=== PATIENT | male | born 1970 | race Caucasian/White ===

== ENCOUNTER 2021-07-12 20:08 | Emergency (ER) | payer BC ==
[2021-07-12 21:04] LABS: #Basophils 0.1 10x3/uL (0.0-0.2); #Eosinphils 0.2 10x3/uL (0.0-0.5); #Monocytes 0.9 10x3/uL (0.0-1.1); #Neutrophils 4.2 10x3/uL (1.5-8.4); %Basophils 0.6 % (0.0-2.0); %Eosinophils 2.8 % (0.0-6.0); %Lymphocytes 33.7 % (18.0-47.0); %Monocytes 11.2 % (0.0-10.0); %Neutrophils 51.5 % (40.0-75.0); Hemoglobin 16.8 g/dL (13.5-17.5); Mean Corpuscular HGB CONC 34.3 g/dL (32.0-36.0); Mean Corpuscular Hemoglobin 30.7 pg (27.0-33.0); Mean Corpuscular Volume 89.6 fl (81.2-95.1); Mean Platelet Volume 9.7 fl (7.4-10.4); Platelet Count 221 10x3/uL (150-450); RBC Distribution Width 12.6 % (11.5-14.5); Red Blood Cell (RBC) Count 5.47 10x6/uL (4.32-5.72); White Blood Cell (WBC) Count 8.2 10x3/uL (3.5-10.5)
[2021-07-12 21:17] LABS: ALT (SGPT) 59 U/L (8-55); AST (SGOT) 31 U/L (5-34); Albumin 4.3 g/dL (3.5-5.0); Alkaline Phosphatase 45 U/L (40-110); Anion Gap 13 mmol/L (10-20); BUN (Urea Nitrogen) 16 mg/dL (8.9-20.6); Bilirubin, Total 0.4 mg/dL (0.2-1.2); Calc. Creatinine Clearance 0 mL/min (70-130); Calcium 9.6 mg/dL (7.8-10.44); Carbon Dioxide 25 mmol/L (22-29); Chloride 106 mmol/L (98-107); Glucose 122 mg/dL (70-105); Potassium 4.6 mmol/L (3.5-5.1); Protein, Total 7.3 g/dL (6.0-8.3); Sodium 139 mmol/L (136-145)
== END 2021-07-12 22:04 | disposition home or self-care (01) ==
LOC: CSHERS 20:08
DX: I82.401 Acute embolism and thrombosis of unspecified deep veins of right lower extremity (principal); Z86.73 Personal history of transient ischemic attack (TIA), and cerebral infarction without residual deficits
CPT/HCPCS: 80053; 83880; 85025

== ENCOUNTER 2023-12-27 22:07 | Emergency (ER) | payer BC ==
[2023-12-28] MEDS ORDERED: HYDROcodone/Acetaminophen 5/325 mg Tablet ONE (00:25)
== END 2023-12-28 01:34 | disposition home or self-care (01) ==
LOC: CSHERS 22:07
DX: M66.9 Spontaneous rupture of unspecified tendon (principal)
CPT/HCPCS: 99283

== ENCOUNTER 2025-04-12 07:57 | Emergency (ER) | payer BC, OTHER ==
[2025-04-12] MEDS ORDERED: Ketorolac Tromethamine 30 MG (1 mL) VIAL ONE (08:43)
[2025-04-12] MEDS ORDERED: Ondansetron PF 4 MG/2 ML Vial ONE (08:43)
[2025-04-12 08:48] LABS: #Basophils 0.05 10x3/uL (0.0-0.2); #Eosinophils 0.15 10x3/uL (0.0-0.5); #Monocytes 0.99 10x3/uL (0.0-1.1); #Neutrophils 5.45 10x3/uL (1.5-8.4); %Basophils 0.6 % (0.0-2.0); %Eosinophils 1.7 % (0.0-6.0); %Lymphocytes 22.9 % (18.0-47.0); %Monocytes 11.4 % (0.0-10.0); %Neutrophils 63.1 % (40.0-75.0); Hematocrit 47.4 % (38.8-50.0); Hemoglobin 16.3 g/dL (13.5-17.5); Mean Corpuscular Hemoglobin 30.3 pg (27.0-33.0); Mean Corpuscular Volume 88.1 fL (81.2-95.1); Platelet Count 190 10x3/uL (150-450); Red Blood Cell (RBC) Count 5.38 10x6/uL (4.32-5.72); White Blood Cell (WBC) Count 8.65 10x3/uL (3.5-10.5)
[2025-04-12 09:09] LABS: ALT (SGPT) 35 U/L (Less than 45); AST (SGOT) 27 U/L (11-34); Albumin 4.3 g/dL (3.1-4.5); Alkaline Phosphatase 40 U/L (40-110); Anion Gap 12 mmol/L (10-20); BUN (Urea Nitrogen) 17 mg/dL (8.4-25.7); Bilirubin, Total 0.3 mg/dL (0.3-1.2); Calc. Creatinine Clearance 0 mL/min (70-130); Calcium 9.0 mg/dL (7.8-10.44); Carbon Dioxide 21 mmol/L (22-29); Chloride 109 mmol/L (98-107); Globulin 3.0 g/dL (2.4-3.5); Glucose 129 mg/dL (70-105); Lipase 47 U/L (8-78); Potassium 4.4 mmol/L (3.5-5.1); Sodium 138 mmol/L (136-145)
[2025-04-12 09:11] LABS: Troponin I Less than 0.010 ng/mL (< 0.028)
[2025-04-12] MEDS ORDERED: Sevoflurane 250 ML INH ANEST BOTTLE ONE (14:09)
== END 2025-04-12 11:57 | disposition home or self-care (01) ==
LOC: CSHERS 07:57
DX: R10.13 Epigastric pain (principal); H53.9 Unspecified visual disturbance; Z86.73 Personal history of transient ischemic attack (TIA), and cerebral infarction without residual deficits
CPT/HCPCS: 70551; 74177; 80053; 83690; 84484; 85025; 93005; 96374; 96375; J1885; J2405